=== PATIENT | male | born 1970 | race Caucasian/White ===

== ENCOUNTER 2016-11-19 20:46 | Emergency (ER) | payer OTHER ==
[~2016-11-19] VITALS: Ht 172.7 cm; Wt 72.7 kg
[2016-11-19 21:23] LABS: HEMATOCRIT 41.2 % (38.0-50.0); MCH 31.3 PG (29.0-34.0); MCHC 35.7 G/DL (30.0-36.0); MCV 87.8 FL (86-99); MEAN PLAT.VOLUME 8.1 uM^3 (9.0-12.4); PLATELET COUNT 179 K/uL (156-360); RBC DIS.WIDTH-CV 13.7 % (11.8-14.6); RED BLOOD COUNT 4.69 M/uL (4.00-5.50); WHITE BLOOD COUNT 6.6 K/uL (4.1-10.2)
[2016-11-19 21:37] LABS: CHLORIDE 101 mEq/L (99-109); POTASSIUM 4.4 mEq/L (3.7-5.4); SODIUM 139 mEq/L (136-147)
[2016-11-19 21:39] LABS: GLUCOSE 105 mg/dL (70-99)
[2016-11-19 21:40] LABS: ANION GAP 12 MEQ/L (2-14)
[2016-11-19 21:42] LABS: SERUM ETHYL ALCOHOL 224 mg/dL
[2016-11-19 21:43] LABS: GFR ESTIMATE (CALCULATED) > 59 mL/min/
[2016-11-19 21:44] LABS: UREA NITROGEN (BUN) 5 mg/dL (9-23)
[2016-11-20 01:09] LABS: AMPHETAMINE NEGATIVE (500 ng/mL); BARBITURATES NEGATIVE (200 ng/mL); BENZODIAZEPINES NEGATIVE (150 ng/mL); COCAINE NEGATIVE (150 ng/mL); INTERNAL CONTROLS VALID? YES; METHADONE NEGATIVE (200 ng/mL); METHAMPHETAMINE NEGATIVE (500 ng/mL); OPIATES (MORPHINE) NEGATIVE (100 ng/mL); OXYCODONE NEGATIVE (100 ng/mL); PHENCYCLIDINE NEGATIVE (25 ng/mL); PROPOXYPHENE NEGATIVE (300 ng/mL); THC CANNABINOIDS NEGATIVE (50 ng/mL); TRICYCLIC ANTIDEPRESSANTS NEGATIVE (300 ng/mL)
[2016-11-20 02:45] VITALS: BP 145/8
== END 2016-11-20 03:06 | disposition home or self-care (01) ==
LOC: EME 20:46
PROVIDERS: Emergency Medicine
DX: F32.9 Major depressive disorder, single episode, unspecified (principal); F10.129 Alcohol abuse with intoxication, unspecified; Y90.7 Blood alcohol level of 200-239 mg/100 ml
CPT/HCPCS: 80048; 85027; 90839; 99281; 99285; G0480